=== PATIENT | male | born 1960 | race Caucasian/White ===

== ENCOUNTER 2017-05-03 03:23 | Emergency (ER) | payer OTHER ==
[~2017-05-03] VITALS: Ht 177.8 cm; Wt 90.7 kg
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
[~2017-05-03 03:23] MED LIST: ALBUTEROL17 GM INH; ALPRAZOLAM PO; BUPROPION XL300 MG PO; CENTRUM PO; CIPRO PO; CLEOCIN-T60 GM TOP; COLACE PO; DIAZEPAM PO; GABAPENTIN600 MG PO; HYDROXYZINE HCL50 MG PO; KEFLEX500 M1 PO; LISINOPRIL5 MG PO; LORTAB 7.5-5001 TAB PO; NEURONTIN800 MG DOB; OS-CAL 500 + D500 MG PO; PERCOCET10 PO; ROXICODONE30 M1 PO; SERTRALINE HCL100 MG PO; SIMVASTATIN40 MG PO; TIZANIDINE HCL4 M1 PO; VIIBRYD40 MG PO; VITAMIN B-12500 MCG PO; VOLTAREN75 MG PO; WELLBUTRIN XL PO; XANAX1 MG PO
[2017-05-03] MEDS ORDERED: ZOLOFT PO (03:31)
[2017-05-03] MEDS ORDERED: HYDROCORTISONE-28 GM TOP (03:33)
[2017-05-03] MEDS ORDERED: MUPIROCIN0.9 GM (03:33)
== END 2017-05-03 04:42 | disposition home or self-care (01) ==
LOC: SED 03:23
DX: S97.81XA Crushing injury of right foot, initial encounter (principal); S90.31XA Contusion of right foot, initial encounter; I10 Essential (primary) hypertension; F17.200 Nicotine dependence, unspecified, uncomplicated; E78.5 Hyperlipidemia, unspecified; Z88.5 Allergy status to narcotic agent; Z88.6 Allergy status to analgesic agent; Z88.8 Allergy status to other drugs, medicaments and biological substances; W05.2XXA Fall from non-moving motorized mobility scooter, initial encounter; Y92.410 Unspecified street and highway as the place of occurrence of the external cause
CPT/HCPCS: 29540; 73590; 73610; 73630; 99283